=== PATIENT | male | born 1955 | race Caucasian/White ===

== ENCOUNTER 2021-01-30 12:33 | Emergency (ER) | payer OTHER ==
--- NOTE | 2021-01-30 13:06 | ERPHSYRPT ---
- History of Present Illness Source: patient Exam Limitations: no limitations Patient Subjective Stated Complaint: PT HERE FOR AN EPISODE BLURRED VISON THAT WAS RELEIVED BY NITRO, PT ALSO STATES HE HAS BEEN MORE SOB RECENTLY, AND STARTED ON 2 NEW MEDS FOR A UTI , IS UNDER GOING TREATMENT FOR PROSTRATE CANCER, Triage Nursing Assessment: PT ALERT, RESP EASY, ARRIVED PER AMBULANCE, SKIN W/D/P, ABD SOFT, FC IN PLACE,DENIES ANY CP AT CURRENT TIME Physician History: 65 yo wm w sudden onset of "blurry vision" while driving before arrival. Pt pulled to side of road and took SL NTG which restored his vision. He denies focal weakness/chest pain/N/V/diaphoresis/worsening dyspnea. Pt has a h/o CABG/AL/stents/HTN/COPD/prostate ca. He currently has a catheter due to his radiation treatment and is being treated for a UTI. Timing/Duration: other (Before arrival) Severity: mild Character of Deficits: other (Blurry vison which has resolved) Deficits: no difficulties Baseline/Normal Cognition: alert oriented x 3 Current Cognition: alert oriented x 3 Baseline Gait: walks w/o assistance Associated Symptoms: No confusion, No fatigue, No fever, No chills, No loss of consciousness, No nausea, No vomiting, No weakness, No insomnia, No muscle spasms, No numbness/tingling in legs/feet, No paresthesia, No ringing in ears, No seizures, No slurred speech, No trouble walking, No vision changes, No chest pain, No headache Allergies/Adverse Reactions: No Known Drug Allergies Allergy (Unverified 01/30/21 12:38) Home Medications: Sulfamethoxazole/Trimethoprim [Sulfamethoxazole-Tmp Ds Tablet] 1 ea BID 01/30/21 [History] Tamsulosin HCl 1 ea DAILY 01/30/21 [History] Hx Influenza Vaccination/Date Given: No Hx Pneumococcal Vaccination/Date Given: No Immunizations Up to Date: Yes Travel Risk - International Travel Have you traveled outside of the country in past 3 weeks: No - Coronavirus Screening Are you exhibiting any of the following symptoms?: No Close contact with a COVID-19 positive Pt in past 14-21 Days: No - Vaccine Status Have you recieved a Covid-19 vaccination: Yes Nail Maker: Moderna - Vaccination Dates Date of 2cond Vaccination (if applicable): ? - Review of Systems Constitutional: No Symptoms Eyes: No Symptoms Ears, Nose, & Throat: No Symptoms Respiratory: No Symptoms Cardiac: No Symptoms Abdominal/Gastrointestinal: No Symptoms Genitourinary Symptoms: No Symptoms Musculoskeletal: No Symptoms Skin: No Symptoms Neurological: No Symptoms, No Dizziness, No Focal Weakness, No Gait Changes, No Headache, No Irritability, No Lethargy, No Paralysis, No Parasthesia, No Sensory Changes, No Speech Changes, No Tics, No Tremors, No Vertigo Psychological: No Symptoms Endocrine: No Symptoms Hematologic/Lymphatic: No Symptoms Immunological/Allergic: No Symptoms - Past Medical History Pertinent Past Medical History: Yes Cardiac History: Coronary Artery Disease, Hypertension Male Reproductive Disorders: Prostate Cancer Other Medical History: FC IN PLACE - Past Surgical History Past Surgical History: Yes Cardiac: CABG, Cardiac Catheterization, Cardiac Stent Musculoskeletal: Orthopedic Surgery Other Surgical History: LEG,SHOULDER - Social History Smoking Status: Former smoker Drug Use: none Patient Lives Alone: No Significant Family History: no pertinent family hx - Nursing Vital Signs Nursing Vital Signs: Initial Vital Signs Temperature 97.4 F 01/30/21 12:37 Pulse Rate 55 L 01/30/21 12:37 Respiratory Rate 16 01/30/21 12:37 Blood Pressure 116/53 01/30/21 12:37 O2 Sat by Pulse Oximetry 98 01/30/21 12:37 Pain Scale Pain Intensity 0 Harsh - Avril Coma Scale Best Eye Response (Compton): (4) open spontaneously Best Verbal Response (Compton): (5) oriented Best Motor Response (Avril): (6) obeys commands Compton Total: 15 - Physical Exam General Appearance: no apparent distress Eye Exam: bilateral eye: normal inspection, PERRL, EOMI Ears, Nose, Throat Exam: normal ENT inspection, TMs normal, pharynx normal, mo ist mucous membranes Neck Exam: normal inspection, non-tender, supple, full range of motion, No meningismus Respiratory: normal breath sounds, lungs clear, airway intact, No chest tenderness, No respiratory distress Cardiovascular: regular rate/rhythm, normal heart sounds, No murmur Gastrointestinal: soft, normal bowel sounds, No tenderness Back Exam: normal inspection, normal range of motion, No CVA tenderness, No vertebral tenderness Extremity Exam: normal inspection, normal range of motion Peripheral Pulses: carotid (R): 2+, carotid (L): 2+ Mental Status: alert, oriented x 3, cooperative, 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 Exam: normal hearing, normal speech, PERRL, tongue midline, No abnormal eye position, No abnormal gag reflex, No abnormal pupil position, No abnormal speech, No facial asymmetry, No facial droop, No facial paresthesias, No facial weakness, No gaze palsy, No hearing deficit (R), No hearing deficit (L), No tongue deviation to R, No tongue deviation to L Coordination/Gait: normal finger to nose, normal gait, normal cerebellar function, negative Romberg's sign Motor/Sensory: no motor deficit, no sensory deficit, no pronator drift, negative Babinski's sign DTR: bicep (R): 2+, bicep (L): 2+, knee (R): 2+, knee (L): 2+ Skin Exam: normal color, warm, dry, No rash SpO2 Interpretation: normal SpO2: 98 O2 Delivery: Room Air - Course EKG Interpreted by Me: RATE (53/Sinus harsh/Prolonged QT/IVCD/No acute ST changes) - Radiology Exams Chest X-ray Interpretation: Discussed w/ radiologist (CXR neg per Rad) - CT Exams Head CT Interpretation: Discussed w/radiologist (CT head neg per Rad) Ordered Tests: Active Orders 24 hr Category Date Time Status Doula STAT Care 01/30/21 13:07 Completed EKG-ER Only STAT Care 01/30/21 12:58 Completed IV Insertion STAT Care 01/30/21 13:07 Completed CHEST 1 VIEW (PORTABLE) Stat Exams 01/30/21 12:59 Completed HEAD WITHOUT CONTRAST [CT] Stat Exams 01/30/21 12:57 Completed CBC W DIFF Stat Lab 01/30/21 12:50 Completed CMP Stat Lab 01/30/21 12:50 Completed PROTIME WITH INR Stat Lab 01/30/21 12:50 Completed PTT Stat Lab 01/30/21 12:50 Completed TROPONIN Q3H Lab 01/30/21 12:50 Completed TROPONIN Q3H Lab 01/30/21 14:40 Completed TROPONIN Q3H Lab 01/30/21 19:00 Ordered TROPONIN Q3H Lab 01/30/21 22:00 Ordered Lab/Rad Data: Laboratory Result Diagrams 01/30/21 12:50 01/30/21 12:50 Laboratory Results 01/30/21 01/30/21 01/30/21 Range/Units 14:40 12:50 12:50 WBC (4.0-10.5) K/mm3 RBC (4.1-5.6) M/mm3 Hgb (12.5-18.0) gm/dl Hct (42-50) % MCV (78-100) fl MCH (26-32) pg MCHC (32-36) g/dl RDW (11.5-14.0) % Plt Count (150-450) K/mm3 MPV (7.5-11.0) fl Gran % (36.0-66.0) % Eos # (Auto) (0-0.5) Absolute Lymphs (auto) (1.0-4.6) Absolute Monos (auto) (0.0-1.3) Lymphocytes % (24.0-44.0) % Monocytes % (0.0-12.0) % Eosinophils % (0.00-5.0) % Basophils % (0.0-0.4) % Absolute Granulocytes (1.4-6.9) Basophils # (0-0.4) PT 11.2 (9.4-12.5) SECONDS INR 0.95 (0.8-3.0) APTT 28.3 (25.1-36.5) SECONDS Sodium (137-145) mmol/L Potassium (3.5-5.1) mmol/L Chloride (98-107) mmol/L Carbon Dioxide (22-30) mmol/L Anion Gap (5-15) MEQ/L BUN (9-20) mg/dL Creatinine (0.66-1.25) mg/dL Estimated GFR ML/MIN Glucose (74-106) mg/dL Calcium (8.4-10.2) mg/dL Total Bilirubin (0.2-1.3) mg/dL AST (17-59) U/L ALT (0-50) U/L Alkaline Phosphatase (38-126) U/L Troponin I < 0.012 < 0.012 (0.000-0.034) ng/mL Serum Total Protein (6.3-8.2) g/dL Albumin (3.5-5.0) g/dL 01/30/21 01/30/21 Range/Units 12:50 12:50 WBC 7.2 (4.0-10.5) K/mm3 RBC 3.97 L (4.1-5.6) M/mm3 Hgb 11.8 L (12.5-18.0) gm/dl Hct 36.1 L (42-50) % MCV 90.9 (78-100) fl MCH 29.7 (26-32) pg MCHC 32.7 (32-36) g/dl RDW 13.1 (11.5-14.0) % Plt Count 197 (150-450) K/mm3 MPV 10.2 (7.5-11.0) fl Gran % 73.0 H (36.0-66.0) % Eos # (Auto) 0.18 (0-0.5) Absolute Lymphs (auto) 0.97 L (1.0-4.6) Absolute Monos (auto) 0.76 (0.0-1.3) Lymphocytes % 13.6 L (24.0-44.0) % Monocytes % 10.6 (0.0-12.0) % Eosinophils % 2.5 (0.00-5.0) % Basophils % 0.3 (0.0-0.4) % Absolute Granulocytes 5.22 (1.4-6.9) Basophils # 0.02 (0-0.4) PT (9.4-12.5) SECONDS INR (0.8-3.0) APTT (25.1-36.5) SECONDS Sodium 129 L (137-145) mmol/L Potassium 4.0 (3.5-5.1) mmol/L Chloride 97 L (98-107) mmol/L Carbon Dioxide 23 (22-30) mmol/L Anion Gap 13.6 (5-15) MEQ/L BUN 14 (9-20) mg/dL Creatinine 1.11 (0.66-1.25) mg/dL Estimated GFR > 60.0 ML/MIN Glucose 95 (74-106) mg/dL Calcium 8.8 (8.4-10.2) mg/dL Total Bilirubin 0.60 (0.2-1.3) mg/dL AST 32 (17-59) U/L ALT 41 (0-50) U/L Alkaline Phosphatase 71 (38-126) U/L Troponin I (0.000-0.034) ng/mL Serum Total Protein 6.5 (6.3-8.2) g/dL Albumin 4.1 (3.5-5.0) g/dL - Progress Progress: improved Progress Note: 01/30/21 15:52 Pt wo chest pain/focal weakness/dyspnea/fever during stay Mildly bradycardic due to BB but stable during entire stay 01/30/21 17:03 Counseled pt/family regarding: lab results, diagnosis, need for follow-up, rad results - Departure Departure Disposition: Home Clinical Impression: Blurry vision, bilateral Condition: Stable Critical Care Time: No Referrals: NITA ZACARIAS MD [Primary Care Provider] - Instructions: Double Vision (DC) Additional Instructions: Follow up with your assembler 1st shift in AM Continue current medications Return to ER for focal weakness/Headache/chest pain/shortness of breath/temperature greater than 100.5
[2021-01-30 13:08] LABS: INR 0.95 (0.8-3.0); PROTIME 11.2 SECONDS (9.4-12.5)
[2021-01-30 13:09] LABS: Absolute Neutrophil Ct (ANC) 5.22 (1.4-6.9); BASOPHIL % 0.3 % (0.0-0.4); Basophil (Absolute #) 0.02 (0-0.4); Eosinophil % 2.5 % (0.00-5.0); Eosinophil (Absolute #) 0.18 (0-0.5); Hematocrit 36.1 % (42-50); Hemoglobin 11.8 gm/dl (12.5-18.0); Lymphocyte (Absolute #) 0.97 (1.0-4.6); Lymphocytes % 13.6 % (24.0-44.0); Mean Cell Volume 90.9 fl (78-100); Mean Corpuscular Hemoglobin 29.7 pg (26-32); Mean Corpuscular Hgb Concent. 32.7 g/dl (32-36); Mean Platelet Volume 10.2 fl (7.5-11.0); Monocyte (Absolute #) 0.76 (0.0-1.3); Monocytes % 10.6 % (0.0-12.0); Platelet Count 197 K/mm3 (150-450); Red Blood Count 3.97 M/mm3 (4.1-5.6); Red Cell Distribution Width 13.1 % (11.5-14.0); White Blood Count 7.2 K/mm3 (4.0-10.5)
[2021-01-30 13:11] LABS: PTT 28.3 SECONDS (25.1-36.5)
[2021-01-30 13:14] LABS: ALBUMIN 4.1 g/dL (3.5-5.0); ALKALINE PHOSPHATASE 71 U/L (38-126); ANION GAP 13.6 MEQ/L (5-15); BLOOD UREA NITROGEN 14 mg/dL (9-20); CHLORIDE 97 mmol/L (98-107); Calcium 8.8 mg/dL (8.4-10.2); Carbon Dioxide 23 mmol/L (22-30); Creatinine 1 1.11 mg/dL (0.66-1.25); EST GLOMERULAR FILTRATION RATE > 60.0 ML/MIN; Glucose 95 mg/dL (74-106); SGOT/AST 32 U/L (17-59); SGPT/ALT 41 U/L (0-50); SODIUM 129 mmol/L (137-145); Total Protein 6.5 g/dL (6.3-8.2)
--- NOTE | 2021-01-30 13:30 | XRAY ---
Indication: Lethargy and blurred vision. Comparison: None Portable chest is clear. Heart not enlarged with CABG surgery and coronary stent graft. Bony thorax intact with mild osteopenia and degenerative changes. Impression: Nonacute chest with chronic features.
--- NOTE | 2021-01-30 13:30 | XRAY ---
Indication: Dizziness and blurred vision. Multiple contiguous axial images obtained through the head without contrast. Comparison: None Age-appropriate global atrophy. No acute intracranial hemorrhage, abnormal extra-axial fluid collection, or mass effect. Fourth ventricle is midline without hydrocephalus. Rojo white matter differentiation preserved. Bony calvarium intact. Visualized paranasal sinuses and mastoid air cells are clear. Impression: Negative CT head without contrast exam.
[2021-01-30 15:07] VITALS: BP 112/52; PULSE 54; O2SAT 98
== END 2021-01-30 16:25 | disposition home or self-care (01) ==
LOC: ED 12:33
DX: H53.8 Other visual disturbances (principal)
CPT/HCPCS: 36000; 36415; 70450; 71045; 80053; 84484; 85025; 85610; 85730; 93005; 93041; 99284